=== PATIENT | male | born 1985 | race Caucasian/White ===

== ENCOUNTER 2018-08-02 03:01 | Emergency (ER) | payer MEDICAID, OTHER ==
[~2018-08-02] VITALS: Ht 170.2 cm; Wt 80.0 kg
[2018-08-02 03:02] VITALS: BP 138/99; PULSE 61; RESP 20; Ht 170.2 cm; Wt 80.0 kg
[2018-08-02] MEDS ORDERED: KETOROLAC 60 MG INJ IM STA (04:10)
[2018-08-02] MEDS ORDERED: predniSONE 20 MG TAB PO ONE (04:30)
[2018-08-02] MEDS ORDERED: IBUP-1542 PO (05:35)
[2018-08-02] MEDS ORDERED: PRED20TA PO (05:35)
[2018-08-02] MEDS ORDERED: NPH10OT LEFT EAR (05:35)
--- NOTE | 2018-08-02 05:41 | ERD ---
ER Documentation Chief Complaint Chief Complaint C/O LEFT EAR PAIN ALONG WITH HEADACHE HPI 33-year-old male presents left ear pain Edgar headache. He also has some sores on his lips. Denies any fevers, sore throat, cough, vomiting. Denies any bleeding or discharge. ROS All systems reviewed and are negative except as per history of present illness. Medications Home Meds Active Scripts Neomycin/Polymyxin/Hydrocort* (Cortisporin* Otic) 10 Ml Susp, 4 DROP LEFT EAR QID for 7 Days, EA Prov:MYRNA ORTEGA MD 08/02/18 Prednisone* (Prednisone*) 20 Mg Tab, 40 MG PO DAILY for 4 Days, TAB Start August 03, 2018 Prov:MYRNA ORTEGA MD 08/02/18 Ibuprofen* (Motrin*) 600 Mg Tab, 600 MG PO Q6H PRN for PAIN, #20 TAB Prov:MYRNA ORTEGA MD 08/02/18 Allergies Allergies: Coded Allergies: No Known Allergy (Unverified , 08/02/18) PMhx/Soc Medical and Surgical Hx: pt denies Medical Hx, pt denies Surgical Hx Hx Alcohol Use: No Hx Substance Use: No Hx Tobacco Use: No Smoking Status: Never smoker FmHx Family History: No diabetes, No coronary disease, No other Physical Exam Vitals Vital Signs Date Temp Pulse Resp B/P (MAP) Pulse Ox O2 O2 Flow FiO2 Time Delivery Rate 08/02/18 99.0 61 20 138/99 99 03:02 (112) Physical Exam Const: No acute distress Head: Atraumatic Eyes: Normal Conjunctiva ENT: Normal External Ears, Nose and Mouth. Some pain with speculum and inflammation of left external auditory canal. There is some tenderness in the left anterior cervical area as well as the occipital area and infra-auricular area. Mild swollen lymph nodes. He has some vesicular lesions on the lower lip as well. Oropharynx grossly normal. Neck: Full range of motion. No meningismus. Resp: Clear to auscultation bilaterally Cardio: Regular rate and rhythm, no murmurs Abd: Soft, non tender, non distended. Normal bowel sounds Skin: No petechiae or rashes Back: No midline or flank tenderness Ext: No cyanosis, or edema Neur: Awake and alert Psych: Normal Mood and Affect Results 24 hrs Current Medications Medications Dose Sig/Iva Start Time Status Last (Trade) Ordered Route PRN Stop Time Admin Dose Reason Admin Ketorolac 60 mg ONCE STAT 08/02/18 DC 08/02/18 Tromethamine IM 04:10 08/02/18 05:09 (Toradol) 04:11 Prednisone 60 mg ONCE ONCE 08/02/18 DC 08/02/18 (Prednisone) PO 04:30 08/02/18 05:08 04:31 Procedures/MDM Presents with left-sided headache neck pain with signs of lymphadenitis. Patient has no signs or symptoms suggest neurologic deficit, meningitis, intracranial bleeding, [employer] lesions, cough, respiratory distress or hypoxemia. Patient appears possibly lymphadenitis related to viral infection or reticular lesions of the lip he also has signs of possible external otitis as well. We will treat with a short course of prednisone for lymphadenitis, ibuprofen, Cortisporin, primary care follow-up and return precautions. The patient was stable with no new complaints during the ER course. Clinically, there is no current evidence to suggest meningitis, sepsis, acute abdomen, pneumonia, stroke, acute coronary syndrome, pulmonary embolism, aortic dissection or any other emergent condition appearing to require further evaluation or hospitalization. Patient counseled regarding my diagnostic impression and care plan. Prior to discharge all questions answered. Pt agrees with treatment plan and understands strict return precautions. Pt is instructed to follow up with primary care provider within 24-48 hours. Precautionary instructions provided including instructions to return to the ER if not improving or for any worsening or changing symptoms or concerns. Departure Diagnosis: Primary Impression: Lymphadenitis Additional Impression: Left ear pain Condition: Stable Patient Instructions: Lymphangitis, External Ear Infection (Adult) Additional Instructions: Cheque otro vez con gardiner doctor primario en el proximo murphy or regresa para mas o nueva simptomas. MYRNA ORTEGA MD Aug 02, 2018 05:41
== END 2018-08-02 06:20 | disposition home or self-care (01) ==
LOC: FTE 03:01
DX: I88.9 Nonspecific lymphadenitis, unspecified (principal)
CPT/HCPCS: 96372; J1885; J7512; Z7502